=== PATIENT | male | born 1960 | race Caucasian/White ===

== ENCOUNTER 2021-01-31 07:02 | Observation (INO) | payer BC, OTHER ==
[~2021-01-31] VITALS: Ht 172.7 cm; Wt 91.3 kg
[~2021-01-31 07:02] MED LIST: ACYCLOVIR 200200 MG PO; ADULT ASPIRIN R81 MG PO; COZAAR 25 MG TA25 M1 PO; HYDROCODON-ACE1 EAC7 PO; ROSUVASTATIN CA20 MG PO
[2021-01-31 09:00] VITALS: BP 153/87
--- NOTE | 2021-01-31 17:10 | NUR ---
ADMITTED TO 4S FOR LEFT KNEE REPLACEMENT. ROOM AIR. STAND BY ASSIST WITH WALKER-STEADY GAIT. ICE ON LEFT KNEE. LEFT HAND IV WITH 1/2 NS INFUSING @ 100 MLS/HR. BILATERAL SCDS AND TEDS ON. PERCOCET GIVEN FOR 7/10 LEFT KNEE PAIN.
--- NOTE | 2021-02-01 04:42 | NUR ---
ASSUMED CARE AT 1900. PT IS A/O X4 AND IS UP WITH SBA USING WALKER TO THE BR. PLEASANT AND COOPERATIVE. ROOM AIR. VSS. C/O PAIN. PRN PAIN MEDICATION GIVEN DIRECTED. MEDICATIONS GIVEN PER MAR. PT HAS COMPLETED ABX AND IS ON SECOND AND FINAL BAG OF IV FLUID. INFUSING AT DIRECTED RATE. FALL PRECAUTIONS IMPLEMENTED. CALL LIGHT IS WITHIN REACH. PT CALLS OUT APPROPRIATELY AND IS PROGRESSING TOWARDS PLAN OF CARE DC GOALS AT THIS TIME.
[2021-02-01 05:55] LABS: BASOPHILS 0.3 % (0.0-2.0); EOSINOPHILS 0.4 % (0.0-3.0); HEMATOCRIT 38.6 % (42.0-52.0); LYMPHOCYTES 21.7 % (24.0-44.0); MCH 34.7 pg (26.0-34.0); MCHC 33.6 g/dL (28.0-37.0); MCV 103.3 fL (80.0-100.0); PLATELET COUNT 281 thou/uL (150-400); POLYS 68.6 % (36.0-66.0); RBC 3.73 mil/uL (4.50-6.00); WBC 10.2 thou/uL (4.0-11.0)
[2021-02-01 06:35] LABS: CALCIUM 8.6 mg/dL (8.5-10.1); CREATININE 1.1 mg/dL (0.7-1.3); MAGNESIUM 1.9 mg/dL (1.8-2.4); POTASSIUM 3.8 mmol/L (3.5-5.1)
--- NOTE | 2021-02-01 07:13 | O ---
[facility] [place] [address] OPERATIVE REPORT Name: DORA LINDO Room #: 441-P [facility]..#: [id number] Admission: 01/31/21 Attend Phys: Eliezer Gale MD Discharge: Date of : 58 Report #: [id number] THIS REPORT FOR: cc: Bernadette Pemberton MD, Cabot L. MD Clymer, David J. MD ~ DATE OF SERVICE: 01/31/2021 PREOPERATIVE DIAGNOSIS: Left knee arthritis with varus malalignment and medial compartment collapse. POSTOPERATIVE DIAGNOSIS: Left knee arthritis with varus malalignment and medial compartment collapse. PROCEDURE: Left knee medial hemiarthroplasty using Biomet [place] system. SURGEON: Eliezer Gale MD INDICATIONS: This fit, active 60-year-old gentleman complains of progressive left knee pain almost entirely along the medial border. Clinical exam and x-rays reveal significant loss of joint space on the medial side with fairly good joint space at the patella and the lateral compartment. We have discussed treatment options. He has not seen much improvement with injections and anti-inflammatories or activity moderation. He is trying to still be active and feels the knee arthritis is progressing. Given this, he has elected to go ahead with a medial hemiarthroplasty reconstruction. DESCRIPTION OF PROCEDURE: The patient was taken to the operating room where he was placed under general anesthesia. A femoral nerve block was also applied. The left knee and leg were meticulously prepped and draped and a thigh tourniquet applied and inflated to 300 mmHg. An anterior longitudinal skin incision was made just medial to the patella and the patellar tendon. The medial aspect of the joint was exposed. A marked degenerative change with complete loss of cartilage on both the femoral condyle and medial tibial plateau was noted. There was some spurring about the patella, which was debrided. There seemed to be better cartilage on the patella and the lateral compartment. The cruciate ligaments appeared to be intact. The Biomet [place] knee system was utilized. The tibial external guide was applied and the tibial cuts made on the medial tibial plateau. A size D tibial component seemed to fit nicely. Sufficient bone was resected to allow good flexion and extension. The femoral guide was applied and the femur seemed best suited for a size medium femoral component. Appropriate guide holes were created. The distal aspect of the femur was reamed to balance the flexion and extension spaces. A size medium femoral component fit nicely. A trial reduction was performed and the knee was best suited for a [address] [address] OPERATIVE REPORT Name: DORA LINDO Room #: 441-P ADM [facility] M.R.#: [id number] Admission: 01/31/21 Attend Phys: Eliezer Gale MD Discharge: Date of : 58 Report #: [id number] insert. This resulted in full knee extension and flexion beyond 135 degrees, with good stability. The polyethylene trial fit nicely and seemed to track well without any evidence of instability. The trial components were removed. The surfaces were thoroughly irrigated and dried. Methyl methacrylate cement was injected into the porous surface of the tibia. The permanent components were brought up on to the field. The [place] Biomet size D tibial baseplate was selected. This was impacted into position. It seated nicely and appeared to be secure. Excess cement was removed around its margin. The size medium femoral component was then impacted on the distal femur using appropriate anchor holes. It also seated nicely and appeared to be secure. A trial reduction was again performed and the 4 mm meniscal bearing seemed to fit nicely with good stability. The trial component was removed and the permanent Biomet [place] 4 mm medial meniscal bearing was then snapped into place. It seated nicely and appeared to be secure. Once again, range of motion, alignment and stability were assessed and felt to be satisfactory. The knee was copiously irrigated. The tourniquet was deflated after a total tourniquet time of approximately 50 minutes. Good hemostasis was again confirmed. No Hemovac was used. The capsule and fascia were closed with #1 Vicryl. The subcutaneous tissues were closed with 2-0 Monocryl. The skin was closed with skin ana. A sterile dressing was applied. The patient was awakened and returned to recovery room in good condition. <ELECTRONICALLY SIGNED> By: Eliezer Gale MD 02/01/21 0713 [id number] Eliezer Gale MD /nt
[2021-02-01 07:20] VITALS: BP 113/76
[2021-02-01 07:38] VITALS: BP 153/87
--- NOTE | 2021-02-01 07:49 | D ---
[facility] [place] [address] DISCHARGE SUMMARY Name: DORA LINDO [id number] Admission: 01/31/21 Attend Phys: Eliezer Gale MD Discharge: Date of : 58 Report #: [id number] THIS REPORT FOR: cc: Bernadette Pemberton MD, Cabot L. MD Clymer, David J. MD ~ DATE OF SERVICE: 02/01/2021 FINAL DIAGNOSIS: Degenerative arthritis, left knee. OPERATIONS AND PROCEDURES: Left knee medial hemiarthroplasty. HISTORY: This slender, fit and active 60-year-old gentleman complains of progressive left knee pain with progressive varus malalignment. We discussed treatment options and elected to proceed with medial hemiarthroplasty. HOSPITAL COURSE: The patient was taken to the operating room on 01/31, underwent a left knee medial hemiarthroplasty using a Biomet [place] knee system. He tolerated this well. Postoperatively, his course was unremarkable. He was able to resume regular diet and moved to oral analgesics without difficulty. He was able to begin ambulation using a walker with some assistance and physical therapy instruction. He has resumed a regular diet and is functioning well. He seems to be safe and independent and ready for discharge once cleared by Physical Therapy on 02/01. His discharge medications include rosuvastatin 20 mg daily, acyclovir 200 mg 5 times daily, hydrocodone 5 or 10 mg q. 4 hours as needed for pain, Xarelto 10 mg daily. He will continue a regular diet at home. He will continue gradually advance activity using a walker for protection. I have asked him to call if there are problems or questions. I will see him back in my office in 1 week for followup and 2 weeks for suture removal. <ELECTRONICALLY SIGNED> By: Eliezer Gale MD 02/01/21 0749 [id number] Eliezer Gale MD /nt
--- NOTE | 2021-02-01 10:24 | NUR ---
A/O X 4. ROOM AIR. STAND BY. LEFT HAND IV WITH 1/2 NS INFUSING AT 100 MLS/HR. TEDS/SCDS. PAIN 5/10 NORCO GIVEN FOR PAIN. WILL D/C HOME DAY,
--- NOTE | 2021-02-01 13:28 | NUR ---
Pt dcing home today. He confirms he has a rwalker at home and will being doing outpt therapy per ortho. No cm interventions indicated.
== END 2021-02-01 11:15 | disposition home or self-care (01) ==
LOC: TBA 07:02 → OR 07:02 → TBA 07:03 → OR 12:16 → 4S 14:52 → OR 14:53 → 4S 14:53 → OR 14:59 → 4S 02-01 11:15
PROVIDERS: Nurse Practitioner; ADMIT Orthopaedic Surgery; ATTEND Orthopaedic Surgery
DX: M17.12 Unilateral primary osteoarthritis, left knee (principal); M21.162 Varus deformity, not elsewhere classified, left knee; E78.5 Hyperlipidemia, unspecified; Z87.891 Personal history of nicotine dependence; Z79.899 Other long term (current) drug therapy
CPT/HCPCS: 50010; 50101; 50415; 51130; 51225; 51412; 56525; 57095; 57180; 58111; 58112; 58940; 59107; 62110; 62900; 64039; 70005